=== PATIENT | female | born 1980 | race Two or more races ===

== ENCOUNTER 2024-03-21 23:51 | Emergency (ER) | payer MEDICAID, OTHER ==
[~2024-03-21] VITALS: Ht 162.6 cm; Wt 80.2 kg
[2024-03-22 00:45] LABS: COVID19 ANTIGEN SOFIA FIA NEGATIVE (NEGATIVE); Rapid Strep A Screen-Throat Positive
[2024-03-22 00:46] LABS: Rapid Influenza A Negative (Negative); Rapid Influenza B Negative (Negative)
[2024-03-22 00:50] VITALS: BP 122/81; PULSE 96; RESP 20; TEMP 98.9; O2SAT 97
[2024-03-22] MEDS ORDERED: AMOX875T4 PO (01:07)
[2024-03-22] MEDS ORDERED: IBUP-1456 PO (01:07)
[2024-03-22] MEDS ORDERED: PRED20TA2 PO (01:07)
--- NOTE | 2024-03-22 01:08 | ED.PDOC ---
Eye-HPI HPI Comments 43-year-old female presents to ER with complaints of flu-like symptoms x2 days. Patient reports she has been experiencing intermittent fever, chills, congestion, sore throat and intermittent frontal headache x2 days. States that she last took [id number] Advil at 3:00 p.m. prior to arrival to ER. Patient presents to ER ambulatory on arrival, with steady gait, in no distress. Denies cough, shortness of breath, difficulty swallowing, nausea/vomiting, known exposure to sick contacts or any further symptoms/complaints Chief Complaint: Flu like Time Seen by MD: 00:02 Primary Care Provider: Canelo Reviewed Notes: Nurses Notes, Medications, Allergies Allergies: Coded Allergies: NO KNOWN ALLERGIES (Unverified , 03/22/24) Home Meds Active Scripts Ibuprofen (Ibuprofen) 800 Mg Tab, 1 TAB PO TID PRN, #30 TAB 0 Refills Prov:NISHA CHEN 03/22/24 Prednisone (Prednisone) 20 Mg Tab, 20 MG PO BID for 5 Days, #10 TAB 0 Refills Prov:NISHA CHEN 03/22/24 Amoxicillin & Pot Clavulanate (Amoxicillin/Potassium Cla) 875 Mg Tab, 1 TAB PO BID for 7 Days, #14 TAB 0 Refills Prov:NISHA CHEN 03/22/24 Information Source: Patient Mode of Arrival: Ambulatory Past Medical History PAST MEDICAL HISTORY: Denies Surgical History: Denies all surgeries Family History Family History: Unknown Social History Smoker: Non-Smoker Alcohol: Denies ETOH Use Drugs: Denies Drug Use Lives In: Home Constitutional: reports: others (As stated in HPI) EENTM: reports: others (As stated in HPI) Respiratory: denies: cough, hemoptysis, orthopnea, SOB at rest, shortness of breath, SOB with excertion, stridor, wheezing, others Cardiovascular: denies: chest pain, dizzy spells, diaphoresis, Dyspnea on exertion, edema, irregular heart beat, left arm pain, lightheadedness, palpitations, PND, syncope, others Gastrointestinal: denies: abdomen distended, abdominal pain, blood streaked bowels, constipated, diarrhea, dysphagia, difficulty swallowing, hematemesis, melena, nausea, poor appetite, poor fluid intake, rectal bleeding, rectal pain, vomiting, others Genitourinary: denies: abnormal vagina bleeding, burning, dyspareunia, dysuria, flank pain, frequency, hematuria, incontinence, pain, , vagina discharge, urgency, others Neurological: reports: others (As stated in HPI) Musculoskeletal: denies: back pain, gout, joint pain, joint swelling, muscle pain, muscle stiffness, neck pain, others Integumetry: denies: bruises, change in color, change in hair/nails, dryness, laceration, lesions, lumps, rash, wounds, others Allergic/Immunocompromised: denies: Difficulty Healing, Frequent Infections, Hives, Itching, others Hematologic/Lymphatic: denies: anemia, blood clots, easy bleeding, easy bruising, swollen glands, others Endocrine: denies: excessive hunger, excessive sweating, excessive thirst, excessive urination, flushing, intolerance to cold, intolerance to heat, unexplained weight gain, unexplained weight loss, others Psychiatric: denies: anxiety, bipolar disorder, depression, hopeless, panic disorder, schizophrenia, sleepless, suicidal, others Physical Exam General Appearance: No Apparent Distress HEENT: PERRL/EOMI, Pharyngeal Erythema (Moderate tonsillar swelling/erythema noted bilaterally with white exudates noted on bilateral tonsils. Uvula- normal), TMs Normal Neck: Full Range of Motion, Non-Tender, Other (Bilateral cervical lymphadenopathy) Respiratory: Chest Non-Tender, Lungs Clear, No Accessory Muscle Use, No Respiratory Distress, Normal Breath Sounds Cardiovascular: No Murmur, No Gallop, Regular Rate/Rhythm Breast Exam: Deferred Gastrointestinal: NOT DONE Genitalia: Deferred Pelvic: Deferred Rectal: Deferred Extremities: Normal capillary refill, Normal range of motion Neurologic: Alert, exec. creative director II-XII nml as Tested, No Motor Deficits, Normal Affect, Normal Mood, No Sensory Deficits Cerebellar Function: Normal Reflexes: Normal Skin: Dry, Normal Color, Warm Peripheral Pulses: 2+ carotid (R), 2+ carotid (L), 2+ Radial (R), 2+ Radial (L), 2+ Brachial (R), 2+ Brachial (L) Lymphatic: Other (Bilateral cervical lymphadenopathy) Was a procedure done? Was a procedure done?: No Sedation Sedation?: No EENT DIFF Eye: N/A Sore Throat: Mononeucleosis, Peritonsillar Abscess, URI Other Differential Diagnosis COVID 19, influenza X-Ray, Labs, Meds, VS Vital Signs Date Time Temp Pulse Resp B/P (MAP) Pulse Ox O2 Delivery O2 Flow Rate FiO2 03/22/24 00:50 96 20 97 Room Air 03/22/24 00:50 98.9 20 20 122/81 (95) 97 98.9 03/22/24 00:01 99.5 96 18 125/84 (98) 97 Lab Test 03/21/24 23:59 Range/Units Influenza Type A Antigen Negative Negative Influenza Type B Antigen Negative Negative SARS-CoV-2 Antigen (Rapid) Negative NEGATIVE Group A Streptococcus Rapid Positive Group a strep reviewed-positive Influenza A and B reviewed-negative Haylie reviewed-negative Rocephin 1 g IM ordered Solu-Medrol 125 mg IM ordered Tylenol #3 one tablet p.o. ordered Zofran 4 mg p.o. ordered Patient tolerating p.o. intake well and in no distress during ER visit/prior to discharge Advised to drink plenty of fluids Advised to follow up with PCP in 1-2 days Patient verbalized understanding and agreeable with current plan of care Advised to return to ER immediately if symptoms worsen Time of 1ST Reevaluation: 00:44 Reevaluation 1ST: N/A Patient Education/Counseling: Diagnosis, Treatment, Prognosis, Need For Follow Up Family Education/Counseling: Diagnosis, Treatment, Prognosis, Need For Follow Up Departure 1 Departure Time of Disposition: 01:02 Impression: Primary Impression: Streptococcal pharyngitis Disposition: 01 HOME / SELF CARE / HOMELESS Condition: Stable e-Prescriptions Ibuprofen (Ibuprofen) 800 Mg Tab 1 TAB PO TID PRN, #30 TAB 0 Refills Prov: NISHA CHEN 03/22/24 Prednisone (Prednisone) 20 Mg Tab 20 MG PO BID for 5 Days, #10 TAB 0 Refills Prov: NISHA CHEN 03/22/24 Amoxicillin & Pot Clavulanate (Amoxicillin/Potassium Cla) 875 Mg Tab 1 TAB PO BID for 7 Days, #14 TAB 0 Refills Prov: NISHA CHEN 03/22/24 Discharged With: Self Critical Care Note Critical Care Time?: No Stability Stability form required: No Heart Score Heart Score: Heart Score Response (Comments) Value History N/A 0 EKG N/A 0 Age N/A 0 Risk Factors N/A 0 Troponin N/A 0 Total 0 NISHA CHEN Mar 22, 2024 01:07
[2024-03-22] MEDS: ACETAMINOPHEN/CODEINE#3 (300/30mg) TAB PO ONE (01:11)
[2024-03-22] MEDS: ONDANSETRON ODT 4 MG TAB PO ONE (01:11)
[2024-03-22] MEDS: cefTRIAXone SOD 1,000 MG VL IM ONE (01:12)
[2024-03-22] MEDS: methylPREDNISolone SOD SUCC 125 MG/2 ML VL IM ONE (01:12)
== END 2024-03-22 01:45 | disposition home or self-care (01) ==
LOC: ER 23:51
DX: J02.0 Streptococcal pharyngitis (principal); Z79.899 Other long term (current) drug therapy; Z20.822 Contact with and (suspected) exposure to COVID-19
CPT/HCPCS: 36415; 87426; 87804; 87880; 96372; 99284; J0696; J2919; Q0162